=== PATIENT | female | born 1955 | race Caucasian/White ===

== ENCOUNTER → 2018-01-05 10:47 | Outpatient (CLI) | payer BC, SELFPAY ==
[2018-01-05 11:58] LABS: Absolute Lymphocyte Count 1.22 X10^3/ul (0.83-4.51); Absolute Neutrophil Count 2.6 X10^3/uL (2.0-7.7); Basophil# 0.01 X10^3/uL; Basophil% 0.2 % (0-1); Eosinophil# 0.01 X10^3/uL; Eosinophils% 0.2 % (0-5); Hematocrit 44.9 % (37-47); Hemoglobin 14.6 g/dl (12.0-15.0); Lymphocyte # 1.22 X10^3/ul (4.0); Mean Corp Hgb Conc 32.5 g/gl (32-36); Mean Corpuscular Hgb 30.9 pg (27.0-32.0); Mean Corpuscular Volume 95.1 fL (81-99); Mean Platelet Vol. 10.4 fl (6.2-12.0); Monocyte# 0.27 X10^3/uL; Monocyte% 6.6 % (0-10); Neutrophil # 2.55 X10^3/uL (2.7-7.7); Neutrophil % 62.8 % (47-70); POSITIVE COUNT NO; POSITIVE DIFFERENTIAL NO; POSITIVE MORPHOLOGY NO; Platelet Count 279 K/mm3 (150-450); RBC Distribution Width CV 13.5 % (11.6-14.6); RBC Distribution Width SD 47.1 fl (35.1-43.9); Red Blood Count 4.72 M/mm3 (4.2-5.4); White Blood Count 4.1 K/mm3 (4.4-11.0)
[2018-01-05 12:38] LABS: ALB/GLOB Ratio 0.9 RATIO (0.9-2.4); AST(SGOT) 17 U/L (15-37); Alanine Aminotransfer ALT/SGPT 21 U/L (13-56); Albumin, Serum 3.6 g/dL (3.2-5.0); Alkaline Phosphatase 64 U/L (45-117); Anion Gap 6 (5-15); BUN 11 mg/dL (7-18); BUN/Creat Ratio 13.6 RATIO (10-20); Calcium,Total 8.3 mg/dL (8.5-10.1); Chloride 104 mmol/L (98-107); Cholesterol 184 mg/dL (200); Creatinine, Serum 0.81 mg/dL (0.55-1.02); EST Glomerular Filtration Rate 76 mL/min (>60); Est Glom Filt Rate - Afr Amer 92 mL/min (>60); Ferritin 47 ng/mL (8-252); Free T3 2.7 pg/mL (2.18-3.98); Glucose 112 mg/dL (74-106); High Density Lipoprotein 58 mg/dL; Iron 75 ug/dL (50-170); Iron Binding Capacity,Total 343 ug/dL (250-450); PERCENT IRON SATURATION 21.9 % (15.0-55.0); Potassium 3.9 mmol/L (3.5-5.1); Protein, Total 7.6 g/dL (6.4-8.2); Sodium Level 139 mmol/L (136-145); T4 Free Direct 1.63 ng/dL (0.76-1.46); Thyroid Stim Hormone (TSH) 1.18 uIU/mL (0.358-3.74); Triglycerides 85 mg/dL; Very Low Density Lipoprotein 17 mg/dL (5-40)
[2018-01-07 09:50] LABS: Vitamin D,25 Hydroxy 20.7 ng/mL (29.95-100.01)
== END ==
PROVIDERS: Family Provider Family Medicine; PCP Family Medicine; Visit Provider Internal Medicine Endocrinology, Diabetes & Metabolism
DX: E03.9 Hypothyroidism, unspecified (principal); R63.5 Abnormal weight gain; E55.9 Vitamin D deficiency, unspecified; R53.82 Chronic fatigue, unspecified; R53.81 Other malaise
CPT/HCPCS: 36415; 80053; 80061; 82306; 82728; 83540; 83550; 84439; 84443; 84481; 85025

== ENCOUNTER → 2018-06-01 08:05 | Outpatient (CLI) | payer BC, SELFPAY ==
[2018-06-01 10:27] LABS: ALB/GLOB Ratio 0.8 RATIO (0.9-2.4); AST(SGOT) 21 U/L (15-37); Alanine Aminotransfer ALT/SGPT 22 U/L (13-56); Albumin, Serum 3.3 g/dL (3.2-5.0); Alkaline Phosphatase 64 U/L (45-117); Anion Gap 10 (5-15); BUN 12 mg/dL (7-18); BUN/Creat Ratio 14.9 RATIO (10-20); Calcium,Total 8.3 mg/dL (8.5-10.1); Chloride 108 mmol/L (98-107); EST Glomerular Filtration Rate 77 mL/min (>60); Est Glom Filt Rate - Afr Amer 93 mL/min (>60); Free T3 2.7 pg/mL (2.18-3.98); Glucose 106 mg/dL (74-106); Potassium 3.9 mmol/L (3.5-5.1); Protein, Total 7.3 g/dL (6.4-8.2); Sodium Level 144 mmol/L (136-145); T4 Free Direct 1.75 ng/dL (0.76-1.46)
[2018-06-01 11:00] LABS: Hemoglobin A1c 5.7 % (4.2-6.3)
== END ==
PROVIDERS: Family Provider Family Medicine; PCP Family Medicine; Visit Provider Internal Medicine Endocrinology, Diabetes & Metabolism
DX: E03.9 Hypothyroidism, unspecified (principal)
CPT/HCPCS: 36415; 80053; 83036; 84439; 84443; 84481

== ENCOUNTER → 2018-07-17 09:25 | Outpatient (CLI) | payer BC, SELFPAY ==
--- NOTE | 2018-07-17 09:28 | RAD_ITS ---
STUDY: X-RAY - RIGHT SHOULDER REASON FOR EXAM: Female, 63 years old. Fall. TECHNIQUE: 2 view(s) of the shoulder. COMPARISON: None. FINDINGS: Nondisplaced fracture seen through the junction of the humeral head and neck. No impaction. No distraction. No angulation. Mild comminution. Normal glenohumeral articulation. There is degenerative arthrosis of the acromioclavicular joint without inferior osseous spur formation. Normal acromion. The soft tissue structures are unremarkable. Normal visualized pulmonary apex. RAD/Shoulder min 2 Views IMPRESSION: Fracture of the proximal humerus. Electronically Signed: James Reyes MD at 17:35 EDT , Service support ,
--- NOTE | 2018-07-17 09:28 | RAD_ITS ---
STUDY: X-RAY - RIGHT HUMERUS REASON FOR EXAM: Female, 63 years old. Fall. TECHNIQUE: 2 view(s) of the humerus. COMPARISON: None. FINDINGS: There is nondisplaced fracture through the junction of the humeral head and neck. No angulation. No impaction. No dislocation. RAD/Humerus min 2 Views IMPRESSION: Fracture of the proximal humerus at the junction of the head and neck. Electronically Signed: James Reyes MD at 17:34 EDT , Service support ,
--- NOTE | 2018-07-17 09:28 | RAD_ITS ---
STUDY: X-RAY - RIGHT ELBOW REASON FOR EXAM: Female, 63 years old. Fall. Pain. TECHNIQUE: 4 view(s) of the elbow. COMPARISON: None. FINDINGS: Normal visualized humerus, radius and ulna. Normal radiocapitellar and ulnotrochlear articulations. The soft tissue structures are unremarkable. There is no demonstrated fracture. RAD/Elbow min 3 Views IMPRESSION: Normal x-ray examination of the elbow. Electronically Signed: James Reyes MD at 17:09 EDT , Service support ,
== END ==
PROVIDERS: Family Provider Family Medicine; PCP Family Medicine; Referring Provider Family Medicine; Visit Provider Family Medicine
DX: S42.309A Unspecified fracture of shaft of humerus, unspecified arm, initial encounter for closed fracture (principal); M25.511 Pain in right shoulder; M25.521 Pain in right elbow
CPT/HCPCS: 73030; 73060; 73080

== ENCOUNTER → 2018-07-26 08:18 | Outpatient (CLI) | payer BC, SELFPAY ==
--- NOTE | 2018-07-26 08:20 | RAD_ITS ---
STUDY: X-RAY - RIGHT SHOULDER REASON FOR EXAM: Female, 63 years old. Fracture. Follow-up. TECHNIQUE: AP and scapular Y view(s) of the shoulder. COMPARISON: 07/17/2018 FINDINGS: There is moderate degenerative arthrosis of the glenohumeral articulation. There is degenerative arthrosis of the acromioclavicular joint without inferior osseous spur formation. Normal acromion. There is demineralization of the humerus and visualized osseous structures. Again demonstrated an impacted fracture of the right humeral neck. There is soft tissue swelling of the shoulder. Normal visualized pulmonary apex. RAD/Shoulder min 2 Views IMPRESSION: 1. An impacted fracture of the right humeral neck. 2. Osteopenia. Electronically Signed: Carlos Eastman MD at 8:17 EDT Tel , Service support ,
== END ==
PROVIDERS: Family Provider Family Medicine; PCP Family Medicine; Referring Provider Physician Assistant; Visit Provider Physician Assistant
DX: M25.511 Pain in right shoulder (principal)
CPT/HCPCS: 73030

== ENCOUNTER → 2018-08-01 09:58 | Outpatient (CLI) | payer BC, SELFPAY ==
--- NOTE | 2018-08-01 10:00 | RAD_ITS ---
STUDY: X-RAY - RIGHT SHOULDER REASON FOR EXAM: Female, 63 years old. Fracture follow-up. TECHNIQUE: 2 view(s) of the shoulder. COMPARISON: 07/26/2018. FINDINGS: Limited exam, suboptimal positioning and only 2 views. Fracture line still seen across the proximal humeral shaft. No change in the impacted fracture. No dislocation. Stable degenerative changes. RAD/Shoulder min 2 Views IMPRESSION: Stable appearance of impacted nondisplaced fracture through the junction of the humeral head and shaft. No definite interval healing. Electronically Signed: James Reyes MD at 16:55 EDT , Service support ,
== END ==
PROVIDERS: Family Provider Family Medicine; PCP Family Medicine; Referring Provider Physician Assistant; Visit Provider Physician Assistant
DX: S42.201D Unspecified fracture of upper end of right humerus, subsequent encounter for fracture with routine healing (principal)
CPT/HCPCS: 73030

== ENCOUNTER → 2018-08-27 10:30 | Outpatient (CLI) | payer BC, SELFPAY ==
[2018-08-27 11:27] LABS: Free T3 2.4 pg/mL (2.18-3.98); Thyroid Stim Hormone (TSH) 0.01 uIU/mL (0.358-3.74)
== END ==
PROVIDERS: Family Provider Family Medicine; PCP Family Medicine; Referring Provider Internal Medicine Endocrinology, Diabetes & Metabolism; Visit Provider Internal Medicine Endocrinology, Diabetes & Metabolism
DX: E03.9 Hypothyroidism, unspecified (principal); Z68.43 Body mass index [BMI] 50.0-59.9, adult
CPT/HCPCS: 36415; 84443; 84481

== ENCOUNTER → 2018-08-29 11:02 | Outpatient (CLI) | payer BC, SELFPAY ==
--- NOTE | 2018-08-29 11:06 | RAD_ITS ---
HISTORY: FRACTURE COMPARISON: 08/01/2018 and 07/17/2018 FINDINGS: Right shoulder 3 views. The surgical neck right humeral fracture shows increasing periosteal fracture callus and the fracture line is less distinct. The fracture fragments are unchanged in position. Residual mild anterior angulation of the fracture apex. No dislocation. 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 RAD/Shoulder min 2 Views IMPRESSION: The known right humeral neck fracture shows partial healing and the fracture fragments remain stable in position. at 0331 Reported and signed by: Akira Gilmore MD Electronically Signed: Akira Gilmore, at 3:29 EST Tel , Service support ,
== END ==
PROVIDERS: Family Provider Family Medicine; PCP Family Medicine; Referring Provider Physician Assistant; Visit Provider Physician Assistant
DX: M25.511 Pain in right shoulder (principal)
CPT/HCPCS: 73030

== ENCOUNTER 2018-09-11 15:30 | Outpatient (RCR) | payer BC, SELFPAY ==
--- NOTE | 2018-08-08 17:59 | HP.PTEVAL_ITS ---
Patient's Visit Information LIBBY NEWBERRY is a 63 year old F referred to Physical Therapy by JOBY Loyola with a diagnosis of R proximal humerus Fx. Date of Evaluation: 08/08/18 Physical Therapist: Gabriel Walden PT, - Visit Plan Frequency: 2-3x /Week Plan: R shoulder AROM ex's, strengthening (rot cuff), scap stab ex's, UBE, and HEP - Subjective Subjective: DOI: 07/15/18. Pt reports she fell while walking on a dark path that evening. Pt reports she landed on her knees and elbows, which resulted in a R proximal humeral Fx. Pt reports she went to the ER where she was xrayed, which showed a R proximal humeral fx. Pt reports she was placed into a sling, and once she flew home, has been seen by an orthopedic Dr. Pt reports she is to stay in a sling for another week from today for safe measure. 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 No T or N at this time. Pt notes sleep diff at this time secondary to pain. Pt is L hand dom. 1/10 pain at rest, 5/10 pain at worst (moving her R UE) - Pain R UE Pain Intensity (Out of 10): 1 Pain Intensity Range: 5 - Objective Neuro: B UE sensation is WNL to light touch. B bicepital reflex= 2/3. Observation: echymosis still present. No obvious deformity. ROM: L shoulder flex= 175, abd= 180; R shoulder flex= 70, abd= 40. MMT: L UE 5/5 throughout, R UE 2-/5 and painful - Goals Goal 1:: Decrease R shoulder pain x 50% to aid with sleep Goal Time Frame: 6-8 Weeks Goal 2:: Increase R shoulder abd and flex ROM x 50 degrees to aid with overhead activity Goal Time Frame: 6-8 Weeks Goal 3:: Increase R shoulder strength x 1 grade to aid with IADL's Goal Time Frame: 6-8 Weeks Goal 4:: I with HEP Goal Time Frame: 6-8 Weeks - Rehabilitation Potential Physical Therapy Diagnosis: R shoulder pain, weakness, and limited ROM secondary to R proximal humerus Fx. Rehabilitation Potential: Good - Anticipated Interventions Patient/Client Instruction: Educate patient on: Condition, Plan of Care For the Purpose of:: To improve self management Therapeutic Exercise to Include: Strength training, Endurance training, Postural training, Active ROM, Scapular Strength/Stabilization For the Purpose of:: To decrease pain, To increase ROM, To improve muscle performance and motor function Cryotherapy (ice pack, ice massage): Yes For the Purpose of:: To decrease pain Thank you for the opportunity to evaluate your patient. For Medicare and Medicare HMO plans, please review the plan of care and approve it. It will need to be FAXED BACK to us at [phone] for Medicare purposes. Please let me know if there are questions or concerns regarding this plan of care. Physician Yasmine re: Date:
--- NOTE | 2018-09-11 15:59 | HP.PTEVAL_ITS ---
Patient's Visit Information LIBBY NEWBERRY is a 63 year old F referred to Physical Therapy by JOBY Loyola with a diagnosis of R proximal humerus Fx. Date of Evaluation: 08/08/18 Physical Therapist: Gabriel Walden PT, - Visit Plan Frequency: 2-3x /Week Plan: Discharge - Subjective Findings: DOI: 07/15/18. Pt reports she fell while walking on a dark path that evening. Pt reports she landed on her knees and elbows, which resulted in a R proximal humeral Fx. Pt reports she went to the ER where she was xrayed, which showed a R proximal humeral fx. Pt reports she was placed into a sling, and once she flew home, has been seen by an orthopedic Dr. Pt reports she is to stay in a sling for another week from today for safe measure. 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 No T or N at this time. Pt notes sleep diff at this time secondary to pain. Pt is L hand dom. 1/10 pain at rest, 5/10 pain at worst (moving her R UE) - Pain R UE Pain Intensity (Out of 10): 1 Pain Intensity Range: 5 Comment: Humerus. 1/10 at shoulder - Objective Neuro: B UE sensation is WNL to light touch. B bicepital reflex= 2/3. Observation: echymosis still present. No obvious deformity. ROM: L shoulder flex= 175, abd= 180; R shoulder flex= 70, abd= 40. MMT: L UE 5/5 throughout, R UE 2-/5 and painful - Goals Goal 1:: Decrease R shoulder pain x 50% to aid with sleep Goal Time Frame: 6-8 Weeks Goal 2:: Increase R shoulder abd and flex ROM x 50 degrees to aid with overhead activity Goal Time Frame: 6-8 Weeks Goal 3:: Increase R shoulder strength x 1 grade to aid with IADL's Goal Time Frame: 6-8 Weeks Goal 4:: I with HEP Goal Time Frame: 6-8 Weeks - Rehabilitation Potential Physical Therapy Diagnosis: R shoulder pain, weakness, and limited ROM secondary to R proximal humerus Fx. Rehabilitation Potential: Good - Anticipated Interventions Patient/Client Instruction: Educate patient on: Condition, Plan of Care For the Purpose of:: To improve self management Therapeutic Exercise to Include: Strength training, Endurance training, Postural training, Active ROM, Scapular Strength/Stabilization For the Purpose of:: To decrease pain, To increase ROM, To improve muscle performance and motor function Cryotherapy (ice pack, ice massage): Yes For the Purpose of:: To decrease pain Thank you for the opportunity to evaluate your patient. For Medicare and Medicare HMO plans, please review the plan of care and approve it. It will need to be FAXED BACK to us at [phone] for Medicare purposes. For Medicare only, by signing this I certify the plan of care. Please let me know if there are questions or concerns regarding this plan of care. Physician Signature: Date:
--- NOTE | 2018-10-30 08:37 | HP.PTDCSUM ---
HP - PT D/C Summary It has been my pleasure to treat LIBBY NEWBERRY under orders from JOBY Loyola, for the diagnosis of R proximal humerus Fx for a total of 13 visit(s). Discharge Date: Please see the following information for a summary of their discharge status. - Subjective Subjective: Pt reports she is doing her HEP and is ready for I - Pain R UE Pain Intensity (Out of 10): 1 - Overall Improvement % Improvement: 85 - Objective Objective/Function: R shoulder ROM: flex= 150, abd= 125, ER= 50 degrees. MMT: R shoulder is 4/5 throughout. pain 1/10. I with HEP. Rx goals achieved - Goals Goal 1:: Decrease R shoulder pain x 50% to aid with sleep Goal Progress: Goal Met Goal 2:: Increase R shoulder abd and flex ROM x 50 degrees to aid with overhead activity Goal Progress: Goal Met Goal 3:: Increase R shoulder strength x 1 grade to aid with IADL's Goal Progress: Goal Met Goal 4:: I with HEP Goal Progress: Goal Met - Plan Plan: Discharge - D/C Information If there are questions or concerns regarding this patient's physical therapy, please feel free to call me at [phone]. Thank you for the referral of this patient. Sincerely, Gabriel Walden, PT, ATC
== END 2018-09-11 19:00 | disposition home or self-care (01) ==
LOC: PT 15:30
PROVIDERS: Family Provider Family Medicine; PCP Family Medicine; Referring Provider Physician Assistant; Visit Provider Physician Assistant
DX: S42.201D Unspecified fracture of upper end of right humerus, subsequent encounter for fracture with routine healing (principal)
CPT/HCPCS: 97110; 97162; 97530

== ENCOUNTER → 2018-09-12 08:20 | Outpatient (CLI) | payer BC, SELFPAY ==
--- NOTE | 2018-09-12 08:25 | BD_ITS ---
STUDY: DUAL ENERGY X-RAY ABSORPTIOMETRY / DXA REASON FOR EXAM: Female, 63 years old. The patient is postmenopausal. No loss of height. TECHNIQUE: Bone Mineral Density (BMD) measurements of lumbar spine and bilateral hips were obtained. COMPARISON: None. FINDINGS: Lumbar Spine (L1-L4): g/cm2 (1.101) / T-score (-0.7) / Z-score (0.7) Findings are suggestive of normal bone density with a low fracture risk. Left Femur Total: g/cm2 (1.144) / T-score (1.1) / Z-score (2.1) Left Femoral Neck: g/cm2 (0.884) / T-score (-1.1) / Z-score (0.2) Right Femur Total: g/cm2 (1.107) / T-score (0.8) / Z-score (1.8) Right Femoral Neck: g/cm2 (0.930) / T-score (-0.8) / Z-score (0.6) BD/Dexa Bone Density Study IMPRESSION: The patient is considered osteopenic at the level of the left femoral neck as outlined below according to World Junior Organization (WHO) criteria with a low fracture risk. Reference Information: The T-score is the number of standard deviations above or below the standard which is normal for young adults at their peak bone mineral density. The World Health Organization (WHO) interprets the T-scores as follows: Above -1 Normal bone density Between -1 and -2.5 Osteopenia Equal to / or below -2.5 Osteoporosis As a practical clinical guideline, osteopenia may be graded as follows: Mild -1 through -1.5 Moderate -1.6 through -2.0 Severe -2.1 through -2.4 The Z-score is the number of standard deviations above or below age-matched controls. A Z-score of less than -1.5 would be considered abnormal. References: 1. NIH Osteoporosis and Related Bone Diseases http://www.osteo.org 2. International Society for Clinical Densitometry http://www.iscd.org 3. National Osteoporosis Foundation http://www.nof.org Electronically Signed: Toby Centeno MD at 9:10 EST Tel [phone], Service support ,
--- OUTSIDE RECORDS SUMMARY | 2018-11-07 08:05 | XMS RPT_ITS ---
:1955 Author Organization [place] Support Name Relationship Address Phone SHAHANA NEWBERRY Unavailable [address] + [place] [address] [facility] Unavailable [address] + [place] [address] SHAHANA NEWBERRY Unavailable [address] + [place] [address] [facility] Unavailable [address] + [place] [address] SHAHANA NEWBERRY Unavailable [address] + [place] [address] [facility] Unavailable [address] + [place] [address] SHAHANA NEWBERRY Unavailable [address] + [place] [address] [facility] Unavailable [address] + [place] [address] SHAHANA NEWBERRY Unavailable [address] + [place] [address] [facility] Unavailable [address] + [place] [address] SHAHANA NEWBERRY Unavailable [address] + [place] [address] [facility] Unavailable [address] + [place] [address] SHAHANA NEWBERRY Unavailable [address] + [place] [address] [facility] Unavailable [address] + [place] [address] SHAHANA NEWBERRY Unavailable [address] + [place] [address] [facility] Unavailable [address] + [place] [address] AMISHA NEWBERRYALD Unavailable [address] + [place] [address] [facility] [employer] Unavailable [address] + [place] [address] ROHITH SHAHANA Un[address] + [facility] [address] [facility] Unavailable [address] + [place] [address] ROHITH SHAHANA Un[address] + [place] [address] [facility] Unavailable [address] + [place] [address] ROHITH SHAHANA Un[address] + [place] [address] [facility] [employer] Unavailable [address] + [place] [address] AMISHA NEWBERRYALD Unavailable [address] + [place] [address] [facility] [employer] Unavailable [address] + [place] [address] AMISHA NEWBERRYALD Unavailable [address] + [place] [address] [facility] Unavailable [address] + [place] [address] Care Team Providers Name Role Phone Akira Escobar Attending Unavailable Bari Martinez Referring Unavailable Raghunathan, Jocelyn N. Attending Unavailable Raghunathan, Jocelyn N. Referring Unavailable Ranalexis, Christopher Primary Care Unavailable Raghunathan, Jocelyn N. Attending Unavailable Raghunathan, Jocelyn N. Referring Unavailable Ranney, Christopher Primary Care Unavailable Angel Martinezer Attending Unavailable Angel Martinezer Referring Unavailable Ranalexis, Christopher Primary Care Unavailable Charu Zheng Attending Unavailable Bari Martinez Referring Unavailable Akira Escobar Attending Unavailable Bari Martinez Referring Unavailable Akira Escobar Attending Unavailable Akira Escobar Referring Unavailable Juan, Christopher Primary Care Unavailable Akira Escobar Attending Unavailable Bari Martinez Referring Unavailable Akira Escobar Attending Unavailable Akira Escobar Referring Unavailable Ranney, Christopher Primary Care Unavailable Wayt, Akira Attending Unavailable Wayt, Akira Referring Unavailable Ranney, Christopher Primary Care Unavailable Carrillonatkiya, Jocelyn N. Attending Unavailable Ragcynatkiya, Jocelyn N. Referring Unavailable Ranney, Christopher Primary Care Unavailable Wayt, Akira Attending Unavailable Ranney, Christopher Referring Unavailable Wayt, Akira Attending Unavailable Wayt, Akira Referring Unavailable Ranney, Christopher Primary Care Unavailable Ranney, Christopher Attending Unavailable Ranney, Christopher Referring Unavailable Ranney, Christopher Primary Care Unavailable PROBLEMS PROBLEMS DATE TYPE CONDITION / CODE ATTENDING STATUS SOURCE 09/11/2018 Unknown S42.201D - Akira Escobar Active [place] [facility] fracture of upper Hospital end of right Repository humerus, subsequent encounter for fracture with routine healing / S42.201D(ICD-10) 08/29/2018 Unknown M25.511 - Pain in Akira Escobar Active [place] right shoulder / Community M25.511(ICD-10) Hospital Repository 08/27/2018 Unknown E03.9 - Raghunathan, Active [place] Hypothyroidism, Jocelyn N. [facility] unspecified / Hospital E03.9(ICD-10) Repository 08/27/2018 Unknown Z68.43 - Body Raghunathan, Active [place] mass index (BMI) Jocelyn N. [facility] 50-59.9, adult / Hospital Z68.43(ICD-10) Repository 07/17/2018 Unknown S42.309A - Ranney, Active [place] Unspecified [facility] fracture of shaft Hospital of humerus, Repository unspecified arm, initial encounter for closed fracture / S42.309A(ICD-10) 07/17/2018 Unknown M25.521 - Pain in Ranalexis, Active [place] right elbow [facility] M25.521(ICD-10) Hospital Repository PROCEDURES PROCEDURES No Procedure Records FoundRESULTS RESULTS ORTHOPEDIC VISIT Observed: 09/26/2018 Status: F Source: [place] REPORT 12:42 PM ON LICENSE OF [facility] REPOSITORY [facility] [address] [place] [address] OFFICE VISIT Date of Service: 09/26/18 MR#: [id number] Acct: [id number] Name: DINAH NEWBERRY Rep #: [id number] : 1955 Provider: JOBY Escobar Age/Sex: 63/F Location: [facility] Status: Signed Intake Intake Visit Reasons: RIGHT SHOULDER Is patient in pain?: No Allergies carisoprodol [From Soma] Allergy (Verified 09/26/18 08:19) Anaphylaxis morphine Allergy (Verified 09/26/18 08:19) Hives Medications Albuterol Sulfate [Proair Hfa] 8.5 gm IH DAILY PRN 11/05/16 [History Confirmed 03/21/17] Budesonide/Formoterol 160/4.5 [Symbicort 160/4.5 Mcg Inhaler (SP)] 2 puff INHALATION BID PRN 11/05/16 [History Confirmed 03/21/17] Citalopram [Celexa] 40 mg PO QHS 11/05/16 [History Confirmed 03/21/17] Levothyroxine [Synthroid] 175 mcg PO DAILY 11/05/16 [History Confirmed 03/21/17] Montelukast [Singulair] 10 mg PO QHS 11/05/16 [History Confirmed 03/21/17] Venlafaxine HCl [Venlafaxine HCl ER] 150 mg PO QHS 11/05/16 [History Confirmed 03/21/17] PFSH Social History Smoking Status: Never smoker HPI RIGHT SHOULDER: Details: DINAH NEWBERRY is a 63 year old F here today for a followup on her right humerus fracture. Patient states that she is better. She has good shoulder range of motion although her shoulder pops. She states the popping is annoying. Patient notes that she has some stiffness into her muscles but it is improving. Patient notes that she continues to have some weakness. Denies numbness, tingling or other associated symptoms. ROS Const Reports system reviewed and no additional complaints, except as docu Eyes Reports system reviewed and no additional complaints, except as docu ENT Reports system reviewed and no additional complaints, except as docu Card Reports system reviewed and no additional complaints, except as docu Resp Reports system reviewed and no additional complaints, except as docu GI Reports system reviewed and no additional complaints, except as docu Reports system reviewed and no additional complaints, except as docu Musc Reports muscle weakness, Reports stiffness Skin/Breast Reports system reviewed and no additional complaints, except as docu Neuro Yes system reviewed and no additional complaints, except as docu Psych Reports system reviewed and no additional complaints, except as docu Endo Reports system reviewed and no additional complaints, except as docu Ortho Exam Right Shoulder Skin/Wound: No ecchymosis Contralateral Normal: Yes Testing: Positive PROM-External Rotation at side 0-60 and PROM-Forward Elevation 0-180; negative Hawkin's, Neer's, Speed's, TTP Biceps, TTP AC Joint, Drop Arm, AROM-Forward Elevation 0-180 (175), AROM-External Rotation at side 0-60 (50), Apprehension Test or empty can Internal Rotation: L1 SHOULDER: Patient has no evident abnormalities on inspection. She has no generalized swelling of the shoulder and no more ecchymosis noted. She has some minor tenderness on the lateral deltoid but no tenderness anterior or posterior shoulder. Her range of motion actually is almost full at the same time she does still use her trapezius muscle up with some strength and movement. Her strength is probably 4+/5 at this time. Assessment AND Plan Problems 1. Other closed nondisplaced fracture of proximal end of right humerus with routine healing, subsequent encounter S42.294D Plan At this time patient has shown very good improvement of the right proximal humerus fracture. Her range of motion has improved dramatically and is almost back to full range. There is still some weakness on the right side with evident trapezius recruitment. She does not really have any pains on palpation of the minimal lateral deltoid pain. At this time patient is very happy with how she is doing and we are going to continue with home exercise program as she was discharged from physical therapy due to her improvement. We discussed imaging which at this time I do not feel is warranted to have an MRI of the shoulder as she appears to have an intact rotator cuff. So she is can continue to strengthen the rotator cuff muscles. We discussed making sure that she tries not to shrug the shoulders for added stability which would help work on isolating the rotator cuff. She can ice and take anti- inflammatories as needed for pain. She can notify the office if any worsening pains or problems. We will still consider an injection if she develops any pains or signs of impingement which at this time she does not have. This note was generated with [employer] software. It may contain incorrect words, spelling, and punctuation that were not noted in checking the note before signing. Coding Level of Care Code Off vis,est,level 3 Diagnoses Other closed nondisplaced fracture of proximal end of right humerus with routine healing, subsequent encounter S42.294D Fracture type: closed Fracture morphology: other fracture Fracture alignment: nondisplaced 09/26/18 1242 <Electronically signed by Akira HEMPHILL> Date Akira HEMPHILL Cosigner Signature: Date (if applicable) CC: DEXA BONE DENSITY Observed: 09/12/2018 Status: F Source: [place] STUDY 8:23 AM [facility] REPOSITORY [facility] Imaging Services [address] [place] [address] Dexa Bone Density Study MR#: [id number] Acct: [id number] Name: DINAH NEWBERRY Rep #: [id number] : 1955 F 63 From: Toby Centeno MD PCP: Bari Martinez MD Status: REG [facility] Study: Dexa Bone Density Study Date of Exam: 09/12/18 Exam# [id number] Ordering Dr: Travis Martinez MD STUDY: DUAL ENERGY X-RAY ABSORPTIOMETRY / DXA REASON FOR EXAM: Female, 63 years old. The patient is postmenopausal. No loss of height. TECHNIQUE: Bone Mineral Density (BMD) measurements of lumbar spine and bilateral hips were obtained. COMPARISON: None. FINDINGS: Lumbar Spine (L1-L4): g/cm2 (1.101) / T-score (-0.7) / Z-score (0.7) Findings are suggestive of normal bone density with a low fracture risk. Left Femur Total: g/cm2 (1.144) / T-score (1.1) / Z-score (2.1) Left Femoral Neck: g/cm2 (0.884) / T-score (-1.1) / Z- score (0.2) Right Femur Total: g/cm2 (1.107) / T-score (0.8) / Z- score (1.8) Right Femoral Neck: g/cm2 (0.930) / T-score (-0.8) / Z-score (0.6) BD/Dexa Bone Density Study IMPRESSION: The patient is considered osteopenic at the level of the left femoral neck as outlined below according to World Junior Organization (WHO) criteria with a low fracture risk. Reference Information: The T-score is the number of standard deviations above or below the standard which is normal for young adults at their peak bone mineral density. The World Health Organization (WHO) interprets the T-scores as follows: Above -1 Normal bone density Between -1 and -2.5 Osteopenia Equal to / or below -2.5 Osteoporosis As a practical clinical guideline, osteopenia may be graded as follows: Mild -1 through -1.5 Moderate -1.6 through -2.0 Severe -2.1 through -2.4 The Z-score is the number of standard deviations above or below age-matched controls. A Z-score of less than -1.5 would be considered abnormal. References: 1. NIH Osteoporosis and Related Bone Diseases http://www.osteo.org 2. International Society for Clinical Densitometry http://www.iscd.org 3. National Osteoporosis Foundation http://www.nof.org Electronically Signed: Toby Centeno MD at 9:10 EST Tel [phone], Service support , CC: Bari Martinez MD Disintegrator: Signed INITAL EVALUATION (1) Observed: 09/11/2018 Status: F Source: [place] - PT 3:59 PM [facility] REPOSITORY [facility] Physical Therapy [facility] [address] [place] [address] Fax REHABILITATION SERVICES INITIAL EVALUATION MR#: [id number] Acct: [id number] Name: DINAH NEWBERRY Rep #: [id number] : 1955 63 From: Gabriel Walden PT, ATC Referring Dr.: JOBY Escobar Status: REG RCR Insurance: [employer] INSURANCE Patient's Visit Information DINAH NEWBERRY is a 63 year old F referred to Physical Therapy by JOBY Loyola with a diagnosis of R proximal humerus Fx. Date of Evaluation: 08/08/18 Physical Therapist: Gabriel Walden PT, - Visit Plan Frequency: 2-3x /Week Plan: Discharge - Subjective Findings: DOI: 07/15/18. Pt reports she fell while walking on a dark path that evening. Pt reports she landed on her knees and elbows, which resulted in a R proximal humeral Fx. Pt reports she went to the ER where she was xrayed, which showed a R proximal humeral fx. Pt reports she was placed into a sling, and once she flew home, has been seen by an orthopedic Dr. Pt reports she is to stay in a sling for another week from today for safe measure. 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 No T or N at this time. Pt notes sleep diff at this time secondary to pain. Pt is L hand dom. 1/10 pain at rest, 5/10 pain at worst (moving her R UE) - Pain R UE Pain Intensity (Out of 10): 1 Pain Intensity Range: 5 Comment: Humerus. 1/10 at shoulder - Objective Neuro: B UE sensation is WNL to light touch. B bicepital reflex= 2/3. Observation: echymosis still present. No obvious deformity. ROM: L shoulder flex= 175, abd= 180; R shoulder flex= 70, abd= 40. MMT: L UE 5/5 throughout, R UE 2-/5 and painful - Goals Goal 1:: Decrease R shoulder pain x 50% to aid with sleep Goal Time Frame: 6-8 Weeks Goal 2:: Increase R shoulder abd and flex ROM x 50 degrees to aid with overhead activity Goal Time Frame: 6-8 Weeks Goal 3:: Increase R shoulder strength x 1 grade to aid with IADL's Goal Time Frame: 6-8 Weeks Goal 4:: I with HEP Goal Time Frame: 6-8 Weeks - Rehabilitation Potential Physical Therapy Diagnosis: R shoulder pain, weakness, and limited ROM secondary to R proximal humerus Fx. Rehabilitation Potential: Good - Anticipated Interventions Patient/Client Instruction: Educate patient on: Condition, Plan of Care For the Purpose of:: To improve self management Therapeutic Exercise to Include: Strength training, Endurance training, Postural training, Active ROM, Scapular Strength/Stabilization For the Purpose of:: To decrease pain, To increase ROM, To improve muscle performance and motor function Cryotherapy (ice pack, ice massage): Yes For the Purpose of:: To decrease pain Thank you for the opportunity to evaluate your patient. For Medicare and Medicare HMO plans, please review the plan of care and approve it. It will need to be FAXED BACK to us at [phone] for Medicare purposes. For Medicare only, by signing this I certify the plan of care. Please let me know if there are questions or concerns regarding this plan of care. Physician Signature: Date: <Electronically signed by Gabriel Walden PT, ATC> 09/11/18 1559 CC: JOBY Escobar; Bari Martinez MD [facility] Signed ORTHOPEDIC VISIT Observed: 09/02/2018 Status: F Source: [place] REPORT 12:07 PM [facility] REPOSITORY [facility] [address] [place] [address] OFFICE VISIT Date of Service: 08/29/18 MR#: [id number] Acct: [id number] Name: DINAH NEWBERRY Rep #: [id number] : 1955 Provider: JOBY Escobar Age/Sex: 63/F Location: [facility] Status: Signed Intake Intake Visit Reasons: RIGHT SHOULDER External Grinder Tool Required: No Accompanied by: None Is patient in pain?: Yes (right shoulder) Pain scale (1-10): 2 Allergies carisoprodol [From Soma] Allergy (Verified 08/01/18 10:03) Anaphylaxis morphine Allergy (Verified 08/01/18 10:03) Hives Medications Albuterol Sulfate [Proair Hfa] 8.5 gm IH DAILY PRN 11/05/16 [History Confirmed 03/21/17] Budesonide/Formoterol 160/4.5 [Symbicort 160/4.5 Mcg Inhaler (SP)] 2 puff INHALATION BID PRN 11/05/16 [History Confirmed 03/21/17] Citalopram [Celexa] 40 mg PO QHS 11/05/16 [History Confirmed 03/21/17] Levothyroxine [Synthroid] 175 mcg PO DAILY 11/05/16 [History Confirmed 03/21/17] Montelukast [Singulair] 10 mg PO QHS 11/05/16 [History Confirmed 03/21/17] Venlafaxine HCl [Venlafaxine HCl ER] 150 mg PO QHS 11/05/16 [History Confirmed 03/21/17] PFSH Social History Smoking Status: Never smoker HPI RIGHT SHOULDER: Details: DINAH NEWBERRY is a 63 year old F here today for follow up on right shoulder pain. Patient rates her pain at 2/10 today and describes it as feeling tight and sore like a BP cuff is inflated on it. She states that when she is in PT her pain radiates from her elbow to her neck. Patient says she uses ice and heat to help with the pain. Patient states that a week ago in PT she heard a pop and the pain felt different, but says that something went back into place, as it is feeling better. Patient denies numbness and tingling. Patient states she does have some slight swelling and hears occasional clicking. Ortho Exam Right Shoulder Skin/Wound: No ecchymosis Testing: Positive AROM-Forward Elevation 0-180 and AROM-External Rotation at side 0-60; negative Sulcus Sign or translation Internal Rotation: L3 SHOULDER: On inspection, patients swelling is almost completely resolved. There is a very faint contusion noted. Patient has full forward flexion and abduction that is almost full to 170 degrees. Her external rotation is normal with some decrease in internal rotation. Her strength is slightly diminished throughout at 4/5. Her ROM and strength is so much improved compared to previous visit. Assessment AND Plan Problems 1. Other closed nondisplaced fracture of proximal end of right humerus with routine healing, subsequent encounter S48.738Y Plan Obtained Xrays of patient's right shoulder. Personally reviewed Xrays with patient. Today in the office patient shows very good improvement from her last visit. The swelling in his shoulder has almost completely resolved. There is only a very faint area of bruising noted at this time. Her range of motion has increased dramatically having almost full range of motion in 3 directions. Her strength is still a little diminished which is to be expected. It does appear that she does have strength in her rotator cuff. We discussed the possibility of there being wrote a cuff involvement at the same time with how good her range of motion is it does not appear that she would be a surgical candidate at this time even with a small tear. We are going to continue with physical therapy to work on continued strengthening her shoulder. If in 2-3 weeks we see limited or no improvement or any worsening then we will go ahead with an MRI to evaluate the rotator cuff. Again we discussed that even if there was a small tear in her range of motion and strength is pretty much back to normal that surgery would not be her first option anyhow. We could consider possibly an injection of the shoulder if she has continued pain as well she has full range of motion and almost normal 5 out of 5 strength. She continue to ice the shoulder and take anti-inflammatories as needed for pain. Notify the office with any new injuries, new pains or worsening symptoms. Orders Orders: Plan Detail Follow Up 3 Weeks Coding Level of Care Code Off vis,est,level 3 Diagnoses Other closed nondisplaced fracture of proximal end of right humerus with routine healing, subsequent encounter S41.093U Fracture alignment: nondisplaced Fracture morphology: other fracture Fracture type: closed 09/02/18 1207 <Electronically signed by Akira HEMPHILL> Date Akira HEMPHILL Cosigner Signature: Date (if applicable) CC: SHOULDER MIN 2 VIEWS Observed: 08/29/2018 Status: F Source: [place] 11:06 AM ON LICENSE OF [facility] REPOSITORY [facility] Imaging Services [address] [place] [address] Shoulder min 2 Views MR#: [id number] Acct: [id number] Name: DINAH NEWBERRY Rep #: [id number] : 1955 F 63 From: Akira Gilmore MD PCP: Bari Martinez MD Status: REG CLI Study: Shoulder min 2 Views Date of Exam: 08/29/18 Exam# [id number] Ordering Dr: Akira Escobar HISTORY: FRACTURE COMPARISON: 08/01/2018 and 07/17/2018 FINDINGS: Right shoulder 3 views. The surgical neck right humeral fracture shows increasing periosteal fracture callus and the fracture line is less distinct. The fracture fragments are unchanged in position. Residual mild anterior angulation of the fracture apex. No dislocation. 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 RAD/Shoulder min 2 Views IMPRESSION: The known right humeral neck fracture shows partial healing and the fracture fragments remain stable in position. at 0331 Reported and signed by: Akira Gilmore MD Electronically Signed: Akira Gilmore, at 3:29 EST Tel , Service support , CC: JOBY Escobar; Bari Martinez MD Disintegrator: Signed FREE T3 Collected: 08/27/2018 Status: F Source: [place] 10:34 AM ON LICENSE OF [facility] REPOSITORY TYPE CODE TESTS RESULT OUT OF RANGE REFERENCE UNITS LAB L501.55199 2.18-3.98 pg/mL Normal FREE T3 2.4 Performed By: #### L501.90906, L501.9520 #### [place] [facility] [address] [place], [address] THYROID STIM HORMONE Collected: 08/27/2018 Status: F Source: [place] (TSH) 10:34 AM [facility] REPOSITORY TYPE CODE TESTS RESULT OUT OF RANGE REFERENCE UNITS LAB L501.9520 0.358-3.74 uIU/mL Low TSH 0.01 Performed By: #### L501.59847, L501.9520 #### [place] [facility] [address] [place], [address] ORTHOPEDIC VISIT Observed: 08/12/2018 Status: F Source: [place] REPORT 11:49 AM [facility] REPOSITORY [facility] [address] [place] [address] [address] [place] [address] OFFICE VISIT Date of Service: 07/18/18 MR#: [id number] Acct: [id number] Name: DINAH NEWBERRY Rep #: [id number] : 1955 Provider: Charu Zheng DO Age/Sex: 63/F Location: [facility] Status: Signed Intake Intake Visit Reasons: RIGHT ARM Is patient in pain?: Yes Allergies carisoprodol [From Soma] Allergy (Verified 08/01/18 10:03) Anaphylaxis morphine Allergy (Verified 08/01/18 10:03) Hives Medications Albuterol Sulfate [Proair Hfa] 8.5 gm IH DAILY PRN 11/05/16 [History Confirmed 03/21/17] Budesonide/Formoterol 160/4.5 [Symbicort 160/4.5 Mcg Inhaler (SP)] 2 puff INHALATION BID PRN 11/05/16 [History Confirmed 03/21/17] Citalopram [Celexa] 40 mg PO QHS 11/05/16 [History Confirmed 03/21/17] Levothyroxine [Synthroid] 175 mcg PO DAILY 11/05/16 [History Confirmed 03/21/17] Montelukast [Singulair] 10 mg PO QHS 11/05/16 [History Confirmed 03/21/17] Venlafaxine HCl [Venlafaxine HCl ER] 150 mg PO QHS 11/05/16 [History Confirmed 03/21/17] [facility] Social History Smoking Status: Never smoker HPI RIGHT ARM: Details: DINAH NEWBERRY is a 63 year old F here today for right arm fracture. Patient notes that she was walking on uneven sidewalk, going down hill and she fell on Sunday in [place]. Patient felt and heard a pop. Patient was taken to the ED immediately. Patient had xrays and then she saw her PCP when she returned home, where she had xrays again. Patient has been in a sling since her injury. Patient had bruising into her arm. She is able to move her fingers with no pain. Denies numbness, tingling or other associated symptoms. She is taking vicodin for pain. ROS Const Reports system reviewed and no additional complaints, except as docu Eyes Reports system reviewed and no additional complaints, except as docu ENT Reports system reviewed and no additional complaints, except as docu Card Reports system reviewed and no additional complaints, except as docu Resp Reports system reviewed and no additional complaints, except as docu GI Reports system reviewed and no additional complaints, except as docu Reports system reviewed and no additional complaints, except as docu Musc Reports joint pain, Reports joint swelling Skin/Breast Reports system reviewed and no additional complaints, except as docu Neuro Yes system reviewed and no additional complaints, except as docu Psych Reports system reviewed and no additional complaints, except as docu Endo Reports system reviewed and no additional complaints, except as docu Ortho Exam Right Shoulder Skin/Wound: Yes CDI, Yes ecchymosis Contralateral Normal: Yes Testing: Negative AROM-Forward Elevation 0-180 or AROM-External Rotation at side 0-60 Assessment AND Plan 1. Other closed nondisplaced fracture of proximal end of right humerus, initial encounter S42.053K Plan Personally reviewed the patient's medical history, medications, surgeries and recent exams if available. X-rays were reviewed. There is proximal humerus fracture noted. Educated on the anatomy of the shoulder and that her fracture is well aligned. Instructed to remain in the sling for two weeks and we will xray next week. We will begin therapy in 2 wks and gave script today. Follow up next week for xrays or sooner if pain, swelling, numbness or associated symptoms, or concerns develop. All questions answered. Patient in agreement of plan. Coding Level of Care Code Off vis,new,level 3 Diagnoses Other closed nondisplaced fracture of proximal end of right humerus, initial encounter S42.294A Encounter type: initial encounter Fracture alignment: nondisplaced Fracture morphology: other fracture 08/12/18 1149 <Electronically signed by Charu Zheng DO> Date Charu Zheng DO Cosigner Signature: Date (if applicable) CC: Bari Martinez MD INITAL EVALUATION (1) Observed: 08/08/2018 Status: F Source: [facility] - PT 5:59 PM [facility] REPOSITORY [facility] Physical Therapy Health[address] [place], [place] [address] Fax REHABILITATION SERVICES INITIAL EVALUATION MR#: [id number] Acct: [id number] Name: DINAH NEWBERRY Rep #: [id number] : 1955 63 From: Gabriel Walden PT, ATC Referring Dr.: JOBY Esocbar Status: REG RCR Insurance: [employer]Y INSURANCE Patient's Visit Information DINAH NEWBERRY is a 63 year old F referred to Physical Therapy by JOBY Loyola with a diagnosis of R proximal humerus Fx. Date of Evaluation: 08/08/18 Physical Therapist: Gabriel Walden PT, - Visit Plan Frequency: 2-3x /Week Plan: R shoulder AROM ex's, strengthening (rot cuff), scap stab ex's, UBE, and HEP - Subjective Subjective: DOI: 07/15/18. Pt reports she fell while walking on a dark path that evening. Pt reports she landed on her knees and elbows, which resulted in a R proximal humeral Fx. Pt reports she went to the ER where she was xrayed, which showed a R proximal humeral fx. Pt reports she was placed into a sling, and once she flew home, has been seen by an orthopedic Dr. Pt reports she is to stay in a sling for another week from today for safe measure. 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 No T or N at this time. Pt notes sleep diff at this time secondary to pain. Pt is L hand dom. 1/10 pain at rest, 5/10 pain at worst (moving her R UE) - Pain R UE Pain Intensity (Out of 10): 1 Pain Intensity Range: 5 - Objective Neuro: B UE sensation is WNL to light touch. B bicepital reflex= 2/3. Observation: echymosis still present. No obvious deformity. ROM: L shoulder flex= 175, abd= 180; R shoulder flex= 70, abd= 40. MMT: L UE 5/5 throughout, R UE 2-/5 and painful - Goals Goal 1:: Decrease R shoulder pain x 50% to aid with sleep Goal Time Frame: 6-8 Weeks Goal 2:: Increase R shoulder abd and flex ROM x 50 degrees to aid with overhead activity Goal Time Frame: 6-8 Weeks Goal 3:: Increase R shoulder strength x 1 grade to aid with IADL's Goal Time Frame: 6-8 Weeks Goal 4:: I with HEP Goal Time Frame: 6-8 Weeks - Rehabilitation Potential Physical Therapy Diagnosis: R shoulder pain, weakness, and limited ROM secondary to R proximal humerus Fx. Rehabilitation Potential: Good - Anticipated Interventions Patient/Client Instruction: Educate patient on: Condition, Plan of Care For the Purpose of:: To improve self management Therapeutic Exercise to Include: Strength training, Endurance training, Postural training, Active ROM, Scapular Strength/Stabilization For the Purpose of:: To decrease pain, To increase ROM, To improve muscle performance and motor function Cryotherapy (ice pack, ice massage): Yes For the Purpose of:: To decrease pain Thank you for the opportunity to evaluate your patient. For Medicare and Medicare HMO plans, please review the plan of care and approve it. It will need to be FAXED BACK to us at [phone] for Medicare purposes. Please let me know if there are questions or concerns regarding this plan of care. Physician Signature: Date: <Electronically signed by Gabriel Walden PT, ATC> 08/08/18 1759 CC: JOBY Escobar; Bari Martinez MD [facility] Signed For Medicare only, by signing this I certify the plan of care. Physicians Signature Date ORTHOPEDIC VISIT Observed: 08/01/2018 Status: F Source: DEANNE REPORT 1:00 PM [facility] REPOSITORY [facility] Orthopaedics AND Sports Medicine [address] [place] [address] OFFICE VISIT Date of Service: 08/01/18 MR#: [id number] Acct: [id number] Name: DINAH NEWBERRY Rep #: [id number] : 1955 Provider: JOBY Escobar Age/Sex: 63/F Location: [facility] Status: Signed Intake Intake Visit Reasons: RIGHT SHOULDER Is patient in pain?: Yes Allergies carisoprodol [From Soma] Allergy (Verified 08/01/18 10:03) Anaphylaxis morphine Allergy (Verified 08/01/18 10:03) Hives Medications Albuterol Sulfate [Proair Hfa] 8.5 gm IH DAILY PRN 11/05/16 [History Confirmed 03/21/17] Budesonide/Formoterol 160/4.5 [Symbicort 160/4.5 Mcg Inhaler (SP)] 2 puff INHALATION BID PRN 11/05/16 [History Confirmed 03/21/17] Citalopram [Celexa] 40 mg PO QHS 11/05/16 [History Confirmed 03/21/17] Levothyroxine [Synthroid] 175 mcg PO DAILY 11/05/16 [History Confirmed 03/21/17] Montelukast [Singulair] 10 mg PO QHS 11/05/16 [History Confirmed 03/21/17] Venlafaxine HCl [Venlafaxine HCl ER] 150 mg PO QHS 11/05/16 [History Confirmed 03/21/17] hydrocodone 5 mg-acetaminophen 325 mg tablet 1 tab PO Q6H 7 Days #28 tab 07/26/18 [Rx Confirmed 07/26/18] PFSH Social History Smoking Status: Never smoker HPI RIGHT SHOULDER: Details: DINAH NEWBERRY is a 63 year old F here today for a followup on her right shoulder fracture. She states that her pain is lessening and she is improving. She notes that her pain is now in her shoulder and less at the fracture site. Patient has been wearing her sling at all times. Her bruising is lessening around her arm. Patient took her last pain medication today and is trying to wean herself to aleve. Denies numbness, tingling or other associated symptoms. ROS Const Reports system reviewed and no additional complaints, except as docu Eyes Reports system reviewed and no additional complaints, except as docu ENT Reports system reviewed and no additional complaints, except as docu Card Reports system reviewed and no additional complaints, except as docu Resp Reports system reviewed and no additional complaints, except as docu GI Reports system reviewed and no additional complaints, except as docu Reports system reviewed and no additional complaints, except as docu Musc Reports joint pain, Reports limited joint movement Skin/Breast Reports system reviewed and no additional complaints, except as docu Neuro Yes system reviewed and no additional complaints, except as docu Psych Reports system reviewed and no additional complaints, except as docu Endo Reports system reviewed and no additional complaints, except as docu Ortho Exam Right Shoulder Skin/Wound: Yes ecchymosis (This is improving from previous visits.) Contralateral Normal: Yes Testing: Negative AROM-Forward Elevation 0-180 or AROM-External Rotation at side 0-60 SHOULDER: Patient still currently in a sling today. There is definitely improvement in the amount of swelling noted in the proximal humerus. The ecchymosis is also improving. She still has some minor tenderness of the proximal humerus at the same time shows improvement in pains today. She does have some tenderness on the anterior shoulder over the coracoid process/biceps. She also has some minor tenderness at the AC joint. She definitely still has decreased motion as she is been consistently wearing the sling as directed. Assessment AND Plan Problems 1. Closed fracture of proximal end of right humerus with routine healing, unspecified fracture morphology, subsequent encounter S42.201D Plan Obtained Xrays of patient's right shoulder. Personally reviewed Xrays with patient showing the fracture to be stable without change in alignment from previous images. It does appear that the humeral head is sitting a little higher in the joint is very possibly due to an underlying rotator cuff injury. We discussed this as a possibility and will likely need to be evaluated further once humeral fracture has healed. At this time we are going to give her a prescription for some physical therapy to begin next week with some gentle passive range of motion and progression from there. She needs to continue to ice take pain meds and anti-inflammatories as needed. She is going to return to work next week and is able to do so while wearing the sling. 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 I would continue to wear the sling for another few weeks while she works on range of motion to physical therapy. Patient to notify of any new concerns or complaints or changes in the shoulder in the meantime. Otherwise we will see her back in 1 month Orders Orders: Plan Detail Follow Up 1 Month Coding Level of Care Code Off vis,est,level 3 Diagnoses Closed fracture of proximal end of right humerus with routine healing, unspecified fracture morphology, subsequent encounter S42.201D Fracture type: closed Fracture morphology: unspecified fracture morphology 08/01/18 1300 <Electronically signed by Akira HEMPHILL> Date Akira HEMPHILL Cosigner Signature: Date (if applicable) CC: SHOULDER MIN 2 VIEWS Observed: 08/01/2018 Status: F Source: DEANNE 10:00 AM [facility] REPOSITORY [facility] Imaging Services [address] [place] [address] [place] [address] Shoulder min 2 Views MR#: [id number] Acct: [id number] Name: DINAH NEWBERRY Rep #: [id number] : 1955 F 63 From: James Reyes MD PCP: Bari Martinez MD Status: REG CLI Study: Shoulder min 2 Views Date of Exam: 08/01/18 Exam# [id number] Ordering Dr: Akira Escobar STUDY: X-RAY - RIGHT SHOULDER REASON FOR EXAM: Female, 63 years old. Fracture follow-up. TECHNIQUE: 2 view(s) of the shoulder. COMPARISON: 07/26/2018. FINDINGS: Limited exam, suboptimal positioning and only 2 views. Fracture line still seen across the proximal humeral shaft. No change in the impacted fracture. No dislocation. Stable degenerative changes. RAD/Shoulder min 2 Views IMPRESSION: Stable appearance of impacted nondisplaced fracture through the junction of the humeral head and shaft. No definite interval healing. Electronically Signed: James Reyes MD at 16:55 EDT , Service support , CC: JOBY Escobar; Bari Martinez MD Disintegrator: Signed ORTHOPEDIC VISIT Observed: 07/29/2018 Status: F Source: [facility] REPORT 8:14 AM [facility] Orthopaedics AND Sports Medicine [address] [place] [address] OFFICE VISIT Date of Service: 07/26/18 MR#: [id number] Acct: [id number] Name: DINAH NEWBERRY Rep #: [id number] : 1955 Provider: JOBY Escobar Age/Sex: 63/F Location: [facility] Status: Signed Intake Intake Visit Reasons: RIGHT SHOULDER Is patient in pain?: Yes Allergies carisoprodol [From Soma] Allergy (Verified 07/26/18 08:22) Anaphylaxis morphine Allergy (Verified 07/26/18 08:22) Hives Medications Albuterol Sulfate [Proair Hfa] 8.5 gm IH DAILY PRN 11/05/16 [History Confirmed 03/21/17] Budesonide/Formoterol 160/4.5 [Symbicort 160/4.5 Mcg Inhaler (SP)] 2 puff INHALATION BID PRN 11/05/16 [History Confirmed 03/21/17] Citalopram [Celexa] 40 mg PO QHS 11/05/16 [History Confirmed 03/21/17] Levothyroxine [Synthroid] 175 mcg PO DAILY 11/05/16 [History Confirmed 03/21/17] Montelukast [Singulair] 10 mg PO QHS 11/05/16 [History Confirmed 03/21/17] Venlafaxine HCl [Venlafaxine HCl ER] 150 mg PO QHS 11/05/16 [History Confirmed 03/21/17] hydrocodone 5 mg-acetaminophen 325 mg tablet 1 tab PO Q6H 7 Days #28 tab 07/26/18 [Rx Confirmed 07/26/18] PFSH Social History Smoking Status: Never smoker HPI RIGHT SHOULDER: Details: DINAH NEWBERRY is a 63 year old F here today for a followup on her right humerus fracture. She states that she continues to have right shoulder pain. Patient notes that she no longer has any vicodin and the OTC medications is not helpful. Patient has been wearing her sling at all times. She has significant bruising over her upper arm. Denies numbness, tingling or other associated symptoms. ROS Const Reports system reviewed and no additional complaints, except as docu Eyes Reports system reviewed and no additional complaints, except as docu ENT Reports system reviewed and no additional complaints, except as docu Card Reports system reviewed and no additional complaints, except as docu Resp Reports system reviewed and no additional complaints, except as docu GI Reports system reviewed and no additional complaints, except as docu Reports system reviewed and no additional complaints, except as docu Musc Reports joint pain, Reports limited joint movement Skin/Breast Reports system reviewed and no additional complaints, except as docu Neuro Yes system reviewed and no additional complaints, except as docu Psych Reports system reviewed and no additional complaints, except as docu Endo Reports system reviewed and no additional complaints, except as docu Ortho Exam Right Shoulder Testing: Negative AROM-Forward Elevation 0-180 or AROM-External Rotation at side 0-60 SHOULDER: Patient is currently wearing a sling today in office. There is still pretty significant bruising on the proximal humerus. There is no evident deformity noted. She has tenderness on the proximal humerus as well. her ROM is still extremely limited due to pain and swelling. No other specific maneuvers were performed due to her lack of motion. Assessment AND Plan Problems 1. Other closed nondisplaced fracture of proximal end of right humerus with routine healing, subsequent encounter S49.958B Plan Obtained Xrays of patient's right shoulder. Personally reviewed X-rays which show her evident impacted fracture of the proximal humerus. There has been no change in the position/alignment of the fracture. There is no dislocation, or lucency noted. See chart for further details. Patient still has evident ecchymosis and some swelling of the proximal humerus. She has moderate amt of tenderness still in the region as well. She is to continue to ice and try and stay on top of the pain for now. She is to remain in the sling and we will recheck the X-rays in one week to make sure position is the same. Orders Orders: Medications New: Plan Detail Follow Up 1 Week Coding Level of Care Code Off vis,est,level 2 Diagnoses Other closed nondisplaced fracture of proximal end of right humerus with routine healing, subsequent encounter S43.262F Fracture type: closed Fracture morphology: other fracture Fracture alignment: nondisplaced 07/29/18 0814 <Electronically signed by Akira HEMPHILL> Date Akira HEMPHILL Cosigner Signature: Date (if applicable) CC: SHOULDER MIN 2 VIEWS Observed: 07/26/2018 Status: F Source: DEANNE 8:20 AM [facility] REPOSITORY [facility] Imaging Services [address] [place] [address] Shoulder min 2 Views MR#: [id number] Acct: [id number] Name: DINAH NEWBERRY #: [id number] : 1955 F 63 From: Emeka Eastman PCP: Bari Martinez MD Status: REG CLI Study: Shoulder min 2 Views Date of Exam: 07/26/18 Exam# [id number] Ordering Dr: Akira Escobar STUDY: X-RAY - RIGHT SHOULDER REASON FOR EXAM: Female, 63 years old. Fracture. Follow-up. TECHNIQUE: AP and scapular Y view(s) of the shoulder. COMPARISON: 07/17/2018 FINDINGS: There is moderate degenerative arthrosis of the glenohumeral articulation. There is degenerative arthrosis of the acromioclavicular joint without inferior osseous spur formation. Normal acromion. There is demineralization of the humerus and visualized osseous structures. Again demonstrated an impacted fracture of the right humeral neck. There is soft tissue swelling of the shoulder. Normal visualized pulmonary apex. RAD/Shoulder min 2 Views IMPRESSION: 1. An impacted fracture of the right humeral neck. 2. Osteopenia. Electronically Signed: Carlos Eastman MD at 8:17 EDT Tel , Service support , CC: JOBY Escobar; Bari Martinez MD Disintegrator: Signed ELBOW MIN 3 VIEWS Observed: 07/17/2018 Status: F Source: DEANNE 9:29 AM [facility] REPOSITORY [facility] Imaging Services [address] [place] [address] Elbow min 3 Views MR#: [id number] Acct: [id number] Name: DINAH NEWBERRY Rep #: [id number] : 1955 F 63 From: James Reyes MD PCP: Bari Martinez MD Status: REG CLI Study: Elbow min 3 Views Date of Exam: 07/17/18 Exam# [id number] Ordering Dr: Travis Martinez MD STUDY: X-RAY - RIGHT ELBOW REASON FOR EXAM: Female, 63 years old. Fall. Pain. TECHNIQUE: 4 view(s) of the elbow. COMPARISON: None. FINDINGS: Normal visualized humerus, radius and ulna. Normal radiocapitellar and ulnotrochlear articulations. The soft tissue structures are unremarkable. There is no demonstrated fracture. RAD/Elbow min 3 Views IMPRESSION: Normal x-ray examination of the elbow. Electronically Signed: James Reyes MD at 17:09 EDT , Service support , CC: Bari Martinez MD Disintegrator: Signed HUMERUS MIN 2 VIEWS Observed: 07/17/2018 Status: F Source: [facility] 9:29 AM [facility] REPOSITORY [facility] Imaging Services [address] [place] [address] Humerus min 2 Views MR#: [id number] Acct: [id number] Name: DINAH NEWBERRY Rep #: [id number] : 1955 F 63 From: James Reyes MD PCP: Bari Martinez MD Status: REG CLI Study: Humerus min 2 Views Date of Exam: 07/17/18 Exam# [id number] Ordering Dr: Travis Martinez MD STUDY: X-RAY - RIGHT HUMERUS REASON FOR EXAM: Female, 63 years old. Fall. TECHNIQUE: 2 view(s) of the humerus. COMPARISON: None. FINDINGS: There is nondisplaced fracture through the junction of the humeral head and neck. No angulation. No impaction. No dislocation. RAD/Humerus min 2 Views IMPRESSION: Fracture of the proximal humerus at the junction of the head and neck. Electronically Signed: James Reyes MD at 17:34 EDT , Service support , CC: Bari Martinez MD Disintegrator: Signed SHOULDER MIN 2 VIEWS Observed: 07/17/2018 Status: F Source: DEANNE 9:29 AM [facility] REPOSITORY [facility] Imaging Services [address] [place] [address] Shoulder min 2 Views MR#: [id number] Acct: [id number] Name: DINAH NEWBERRY Rep #: [id number] : 1955 F 63 From: James Reyes MD PCP: Bari Martinez MD Status: REG CLI Study: Shoulder min 2 Views Date of Exam: 07/17/18 Exam# [id number] Ordering Dr: Travis Martinez MD STUDY: X-RAY - RIGHT SHOULDER REASON FOR EXAM: Female, 63 years old. Fall. TECHNIQUE: 2 view(s) of the shoulder. COMPARISON: None. FINDINGS: Nondisplaced fracture seen through the junction of the humeral head and neck. No impaction. No distraction. No angulation. Mild comminution. Normal glenohumeral articulation. There is degenerative arthrosis of the acromioclavicular joint without inferior osseous spur formation. Normal acromion. The soft tissue structures are unremarkable. Normal visualized pulmonary apex. RAD/Shoulder min 2 Views IMPRESSION: Fracture of the proximal humerus. Electronically Signed: James Reyes MD at 17:35 EDT , Service support , CC: Bari Martinez MD Disintegrator: Signed COMPREHENSIVE METABOLIC Collected: 06/01/2018 Status: F Source: DEANNE LUGO 8:09 AM [facility] REPOSITORY TYPE CODE TESTS RESULT OUT OF RANGE REFERENCE UNITS LAB L501.0100 74-106 mg/dL Normal GLU 106 Result Comment: Fasting Glucose result from 100 to 125 mg/dL suggests IMPAIRED HOMEOSTASIS per A.D.A. criteria. Please note revised GLUCOSE reference range effective 2017. LAB L501.1000 7-18 mg/dL Normal BUN 12 LAB L501.1100 0.55-1.02 mg/dL Normal CREAT,SERUM 0.80 Result Comment: The validity of the calculated GFR AND GFRAA in patients over 70 years has not been determined. Clinical correlation is essential. LAB L501.1110 >60 mL/min Normal EST GFR 77 Result Comment: Non- GFR Calc LAB L501.1115 >60 mL/min Normal EST GFR - AA 93 Result Comment: GFR Calc LAB L501.1300 10-20 RATIO Normal BUN/CRE 14.9 LAB L501.1500 6.4-8.2 g/dL T Normal PROT 7.3 LAB L501.1800 3.2-5.0 g/dL Normal ALB 3.3 LAB L501.1950 2.2-4.2 g/dL Normal GLOB 4.0 LAB L501.2000 0.9-2.4 RATIO Low A/G 0.8 LAB L501.2200 8.5-10.1 mg/dL Low CA 8.3 LAB L501.4100 15-37 U/L Normal AST 21 LAB L501.4305 45-117 U/L Normal ALK P 64 LAB L501.4405 13-56 U/L Normal ALT 22 LAB L501.4600 0.20-1.00 mg/dL T Normal BILI 0.30 LAB L501.5300 136-145 mmol/L NA Normal 144 LAB L501.5600 3.5-5.1 mmol/L K Normal 3.9 LAB L501.5900 98-107 mmol/L High CL 108 LAB L501.6100 21.0-32.0 mmol/L Normal CO2 26.0 LAB L501.6200 5-15 Normal GAP 10 Performed By: #### L500.4050, L501.00040, L501.9520, L506.0400 #### [facility] Laboratory [address] [place], [address] FREE T3 Collected: 06/01/2018 Status: F Source: DEANNE 8:09 AM [facility] REPOSITORY TYPE CODE TESTS RESULT OUT OF RANGE REFERENCE UNITS LAB L501.94825 2.18-3.98 pg/mL Normal FREE T3 2.7 Performed By: #### L500.4050, L501.30243, L501.9520, L506.0400 #### [facility] [address] [place], [address] THYROID STIM HORMONE Collected: 06/01/2018 Status: F Source: DEANNE (TSH) 8:09 AM [facility] REPOSITORY TYPE CODE TESTS RESULT OUT OF RANGE REFERENCE UNITS LAB L501.9520 0.358-3.74 uIU/mL Low TSH 0.10 Performed By: #### L500.4050, L501.24428, L501.9520, L506.0400 #### [facility] [address] [place], [address] T4 FREE DIRECT Collected: 06/01/2018 Status: F Source: [place] 8:09 AM [facility] REPOSITORY TYPE CODE TESTS RESULT OUT OF REFERENCE UNITS RANGE LAB L506.0400 0.76-1.46 ng/dL High T4 FREE 1.75 DIRECT Performed By: #### L500.4050, L501.21311, L501.9520, L506.0400 #### [facility] [address] [place], [address] HEMOGLOBIN A1C Collected: 06/01/2018 Status: F Source: DEANNE 8:09 AM [facility] REPOSITORY TYPE CODE TESTS RESULT OUT OF RANGE REFERENCE UNITS LAB L501.9985 4.2-6.3 % Normal HGB A1C 5.7 Performed By: #### L501.9985 #### [facility] [address] [place], [address] CBC W/DIFF, AUTOMATED Collected: 01/05/2018 Status: F Source: DEANNE 10:52 AM [facility] REPOSITORY TYPE CODE TESTS RESULT OUT OF RANGE REFERENCE UNITS LAB L100.1000 4.4-11.0 K/mm3 Low WBC 4.1 LAB L100.1200 4.2-5.4 M/mm3 Normal RBC 4.72 LAB L100.1300 12.0-15.0 g/dl Normal HGB 14.6 LAB L100.1400 37-47 % Normal HCT 44.9 LAB L100.1500 81-99 fL Normal MCV 95.1 LAB L100.1600 27.0-32.0 pg Normal MCH 30.9 LAB L100.1700 32-36 g/gl Normal MCHC 32.5 LAB L100.1810 11.6-14.6 % Normal RDW CV 13.5 LAB L100.1820 35.1-43.9 fl High RDW SD 47.1 LAB L100.1900 150-450 K/mm3 Normal PLT 279 LAB L100.2000 6.2-12.0 fl Normal MPV 10.4 LAB L100.2100 47-70 % Normal NEUT% 62.8 LAB L100.2200 19-41 % Normal LY% 30.0 LAB L100.2300 0-10 % Normal MONO% 6.6 LAB L100.2400 0-5 % Normal EO% 0.2 LAB L100.2500 0-1 % Normal BASO% 0.2 LAB L100.2550 0.0-0.9 % Normal IM GRAN % 0.200 Result Comment: IG% - Immature Granulocytes (promyelocytes, myelocytes and metamyelocytes) > 1% indicates that a LEFT SHIFT is Present. LAB L100.2620 2.0-7.7 X10 3/uL Normal Absolute Neut 2.6 LAB L100.2720 0.83-4.51 X10 3/ul Normal Absolute Lymph 1.22 Performed By: #### L100.0100 #### [facility] [place], [address] COMPREHENSIVE METABOLIC Collected: 01/05/2018 Status: F Source: [facility] 10:52 AM [facility] REPOSITORY TYPE CODE TESTS RESULT OUT OF RANGE REFERENCE UNITS LAB L501.0100 74-106 mg/dL High GLU 112 Result Comment: Fasting Glucose result from 100 to 125 mg/dL suggests IMPAIRED HOMEOSTASIS per A.D.A. criteria. Please note revised GLUCOSE reference range effective 2017. LAB L501.1000 7-18 mg/dL Normal BUN 11 LAB L501.1100 0.55-1.02 mg/dL Normal CREAT,SERUM 0.81 Result Comment: The validity of the calculated GFR AND GFRAA in patients over 70 years has not been determined. Clinical correlation is essential. LAB L501.1110 >60 mL/min Normal EST GFR 76 Result Comment: Non- GFR Calc LAB L501.1115 >60 mL/min Normal EST GFR - AA 92 Result Comment: GFR Calc LAB L501.1300 10-20 RATIO Normal BUN/CRE 13.6 LAB L501.1500 6.4-8.2 g/dL T Normal PROT 7.6 LAB L501.1800 3.2-5.0 g/dL Normal ALB 3.6 LAB L501.1950 2.2-4.2 g/dL Normal GLOB 4.0 LAB L501.2000 0.9-2.4 RATIO Normal A/G 0.9 LAB L501.2200 8.5-10.1 mg/dL Low CA 8.3 LAB L501.4100 15-37 U/L Normal AST 17 LAB L501.4305 45-117 U/L Normal ALK P 64 LAB L501.4405 13-56 U/L Normal ALT 21 Result Comment: Please note revised ALT reference range effective 2017. LAB L501.4600 0.20-1.00 mg/dL Normal T BILI 0.40 LAB L501.5300 136-145 mmol/L Normal NA 139 LAB L501.5600 3.5-5.1 mmol/L Normal K 3.9 LAB L501.5900 98-107 mmol/L Normal CL 104 LAB L501.6100 21.0-32.0 mmol/L Normal CO2 29.0 LAB L501.6200 5-15 Normal GAP 6 Performed By: #### L500.4050, L500.4100, L501.44255, L501.9520, L503.6030, L503.6550, L506.0400 #### [facility] [address] [place], [place], [address] LIPID PROFILE Collected: 01/05/2018 Status: F Source: [facility]AN[place] 10:52 AM [facility] REPOSITORY TYPE CODE TESTS RESULT OUT OF RANGE REFERENCE UNITS LAB L501.4900 200 mg/dL Normal CHOL 184 Result Comment: <200 mg/dL Desirable 200-240 mg/dL Borderline >240 mg/dL High Risk LAB L501.5000 mg/dL Normal TRIG 85 Result Comment: The drugs N-Acetylcysteine and Metamizole may falsely depress this assay. Serum Triglycerides Reference Interval Normal <150 mg/dL Borderline high 150 - 199 mg/dL High 200 - 499 mg/dL Very High > or = 500 mg/dL LAB L501.6400 mg/dL Normal HDL 58 Result Comment: The drugs N-Acetylcysteine and Metamizole may falsely depress this assay. Reference Range HDL <40 mg/dL Low HDL Cholesterol HDL >or= 60 mg/dL High HDL Cholesterol LAB L501.6500 0-130 mg/dL Normal LDL 109 LAB L501.6600 5-40 mg/dL Normal VLDL 17 Performed By: #### L500.4050, L500.4100, L501.72695, L501.9520, L503.6030, L503.6550, L506.0400 #### [facility] [address] [place], [address] FREE T3 Collected: 01/05/2018 Status: F Source: [place] 10:52 AM [facility] REPOSITORY TYPE CODE TESTS RESULT OUT OF RANGE REFERENCE UNITS LAB L501.14233 2.18-3.98 pg/mL Normal FREE T3 2.7 Performed By: #### L500.4050, L500.4100, L501.06325, L501.9520, L503.6030, L503.6550, L506.0400 #### [facility] [address] [place], [place], [address] THYROID STIM HORMONE Collected: 01/05/2018 Status: F Source: DEANNE (TSH) 10:52 AM [facility] REPOSITORY TYPE CODE TESTS RESULT OUT OF RANGE REFERENCE UNITS LAB L501.9520 0.358-3.74 uIU/mL Normal TSH 1.18 Performed By: #### L500.4050, L500.4100, L501.78875, L501.9520, L503.6030, L503.6550, L506.0400 #### [facility] [address] [place], [place], [address] IRON+IRON BINDING Collected: 01/05/2018 Status: F Source: [facility] 10:52 AM [facility] REPOSITORY TYPE CODE TESTS RESULT OUT OF RANGE REFERENCE UNITS LAB L503.6075 250-450 ug/dL TIBC Normal 343 LAB L503.6150 50-170 ug/dL IRON Normal 75 LAB L503.6250 15.0-55.0 % IRON Normal SATURATION 21.9 Performed By: #### L500.4050, L500.4100, L501.91992, L501.9520, L503.6030, L503.6550, L506.0400 #### [facility] [address] [place], [address] FERRITIN Collected: 01/05/2018 Status: F Source: [place] 10:52 AM [facility] REPOSITORY TYPE CODE TESTS RESULT OUT OF RANGE REFERENCE UNITS LAB L503.6550 8-252 ng/mL Normal FERRITIN 47 Performed By: #### L500.4050, L500.4100, L501.24048, L501.9520, L503.6030, L503.6550, L506.0400 #### [facility] [address] [place], [address] T4 FREE DIRECT Collected: 01/05/2018 Status: F Source: [place] 10:52 AM [facility] REPOSITORY TYPE CODE TESTS RESULT OUT OF REFERENCE UNITS RANGE LAB L506.0400 0.76-1.46 ng/dL High T4 FREE 1.63 DIRECT Performed By: #### L500.4050, L500.4100, L501.61430, L501.9520, L503.6030, L503.6550, L506.0400 #### [facility] [address] [place], [address] VITAMIN D,25 HYDROXY Collected: 01/05/2018 Status: F Source: [place] 10:52 AM [facility] REPOSITORY TYPE CODE TESTS RESULT OUT OF REFERENCE UNITS RANGE LAB L506.1000 29.95-100.01 ng/mL Low Vitamin D 20.7 25-OH Result Comment: Vitamin D 25(OH) Status Range Deficiency <20 ng/mL (50nmol/L) Insuffciency 20 - 30 ng/mL (50 - 75 nmol/L) Sufficiency 30 - 100 ng/mL (75 - 250 nmol/L) Toxicity >100 ng/mL (>250 nmol/L) Performed By: #### L506.1000 #### [facility] [address], [address] ALLERGIES ALLERGIES DATE TYPE / CODE NAME / CODE REACTION SEVERITY SOURCE 09/26/2018 Drug morphine/F0 Hives Unknown [facility] Allergy/4160 [id number](RX Hospital 75558(SNOMED NORM) Repository CT) 09/26/2018 Drug carisoprodo Anaphylaxis Unknown [facility] Allergy/4160 l/[id number] Hospital 84597(SNOMED 2(RXNORM) Repository CT) ENCOUNTERS ENCOUNTERS ADMIT/DISCHARGE ACCOUNT ADMITTING ENCOUNTER LOCATION SOURCE NUMBER CLASS 09/26/2018/ [id number] Ambulatory [facility] [place] [facility] Rep[facility] 09/12/2018 [id number] [place] [facility] ing:OPBD Repository 09/11/2018 [id number] Ambulatory [place] 0 [facility] ing:PT Repository 08/29/2018 [id number] Ambulatory [place] 9 [facility] ing:HPRAD Repository 08/29/2018/ [id number] Ambulatory BMSBuilding:B [place] 8 3 [facility] Repository 08/27/2018 [id number] Ambulatory [place] 4 [facility] ing:LAB Repository 08/01/2018 [id number] Ambulatory [place] 3 [facility] ing:HPRAD Repository 08/01/2018/ [id number] Ambulatory [facility] [place] [facility] 2 [facility] Repository 07/26/2018 [id number] Amb[place] 2 [facility] ing:HPRAD Repository 07/26/2018/ [id number] Ambulatory BMSBuilding:B [place] 8 3 [facility] Repository 07/18/2018/ [id number] Ambulatory BMSBuilding:B [place] 8 9 [facility] Repository 07/17/2018 [id number] Ambulatory [place] 9 [facility] ing:MTRAD Repository 06/01/2018 [id number] Ambulatory [place] 7 [facility] ing:LAB Repository 01/05/2018 [id number] Ambulatory [place] 3 [facility] ing:LAB Repository PAYERS PAYERS ENCOUNTER GUARANTOR PAYER SUBSCRIBER SOURCE 09/26/2018 DINAH Bradley Primary DINAH M [place] [id number] Insurance:ANTHEMPolic CLIFTONDOB: Community HICKORY y [place]: [id number] [id number] Repository [address]Che: 330) Date:6637-64-90CW [phone] () [id number] [place] [address] 87649QU: 09/26/2018 Secondary NOT GIVENUNK [place] Insurance:SELF PAY [facility] Number: Effective Repository Date:2018-09-25 09/12/2018 DINAH Bradley Primary DINAH M [place] [id number] Insurance:ANTHEMPolic CLIFTONDOB: [facility] HICKORY y Number: [id number] [id number] Repository [address]Bkb: 330) Date:1752-50-72SG [phone] () 822305NTRKWLM, [place] [address]TA: 09/12/2018 Secondary NOT GIVENUNK [place] Insurance:SELF PAY [facility] Number: Effective Repository Date:2018-08-14 09/11/2018 DINAH M Primary DINAH M [place] [id number] Insurance:ANTHEMPolic CLIFTONDOB: Community HICKORY y Number: [id number] [place] [id number] Repository [address]Yar: (330) Date:3302-18-69TH [phone] () DUSTIN BRITO 15958BE: 09/11/2018 Secondary NOT GIVENUNK [place] Insurance:SELF PAY [facility] Number: Effective Repository Date:2018-08-02 08/29/2018 DINAH M Primary DINAH M [place] [id number] Insurance:ANTHEMPolic CLIFTONDOB: Community HICKORY y Number: [id number] [place] [id number] Repository [address]Oec: (330) Date:1350-80-17RZ [phone] () 178017ORKJIWZ, [place] [address]UM: 08/29/2018 Secondary NOT GIVENUNK [place] Insurance:SELF PAY [facility] Number: Effective Repository Date:2018-08-29 08/29/2018 DINAH M Primary DINAH M [place] [id number] Insurance:ANTHEMPolic CLIFTONDOB: Community HICKORY y Number: [id number] [place] [id number] Repository [address]Mcv: (330) Date:3297-33-78ZU [phone] () [id number], [place] [address]EO: 08/29/2018 Secondary NOT GIVENUNK [place] Insurance:SELF PAY [facility] Number: Effective Repository Date:2018-08-29 08/27/2018 DINAH M Primary DINAH M [place] [id number] Insurance:ANTHEMPolic CLIFTONDOB: Community HICKORY y Number: [id number] [place] [id number] Repository [address]Jng: (330) Date:5497-64-50QP [phone] () DUSTIN BRITO [address]DX: 08/27/2018 Secondary NOT GIVENUNK [place] Insurance:SELF PAY [facility] Number: Effective Repository Date:2018-08-27 08/01/2018 DINAH Bradley Primary DINAH Bradley [place] [id number] Insurance:ANTHEMPolic CLIFTONDOB: Community HICKORY y Number: [id number] [place] [id number] Repository 110[address]Vhe: (330) Date:2767-88-71CW [phone] () [address] [place] [address]11[address]BM: 08/01/2018 Secondary NOT GIVENUNK [place] Insurance:SELF PAY [facility] Number: Effective Repository Date:2018-08-01 08/01/2018 DINAH Bradley Primary DINAH Bradley [place] [id number] Insurance:ANTHEMPolic CLIFTONDOB: Community HICKORY y Number: [id number] [place], [place] [id number] Repository 99[address]Hzl: (330) Date:1603-40-30FO [phone] () [id number] [place] [address] 33[address]AN: 08/01/2018 Secondary NOT GIVENUNK [place] Insurance:SELF PAY [facility] Number: Effective Repository Date:2018-08-01 07/26/2018 DINAH Bradley Primary DINAH Bradley [place] [id number] Insurance:ANTHEMPolic CLIFTONDOB: Community HICKORY y Number: [id number] [place], [place] [id number] Repository 8[address]Lsy: (263) Date:6495-00-80MH [phone] () [id number] [place] [address] 74[address]HB: 07/26/2018 Secondary NOT GIVENUNK [place] Insurance:SELF PAY [facility] Number: Effective Repository Date:2018-07-26 07/26/2018 DINAH Bradley Primary DINAH Bradley [place] [id number] Insurance:ANTHEMPolic CLIFTONDOB: Community HICKORY y Number: [id number] [place], [place] [id number] Repository [address]Hhh: (330) Date:9142-71-49KC [phone] () [id number], [place] [address]TX: 07/26/2018 Secondary NOT GIVENUNK [place] Insurance:SELF PAY [facility] Number: Effective Repository Date:2018-07-18 07/18/2018 Dinah M Primary Dinah M [place] [id number] Insurance:ANTHEMPolic CliftonDOB: Community HICKORY y Number: [id number] [place], [place] [id number] Repository [address]Jdl: (330) Date:2098-30-87WT [phone] () [id number], [place] [address]CH: 07/18/2018 Secondary NOT GIVENUNK [place] Insurance:SELF PAY [facility] Number: Effective Repository Date:2018-07-18 07/17/2018 Dinah M Primary Dinah M [place] [id number] Insurance:ANTHEMPolic CliftonDOB: Community HICKORY y Number: [id number] [place], [place] [id number] Repository [address]Aqi: (330) Date:2552-90-90JY [phone] () 539226TMLTOHA, [place] [address]DI: 07/17/2018 Secondary NOT GIVENUNK [place] Insurance:SELF PAY [facility] Number: Effective Repository Date:2018-07-17 06/01/2018 Dinah M Primary Dinah M [place] [id number] Insurance:ANTHEMPolic CliftonDOB: Community HICKORY y Number: [id number] [place], [place] [id number] Repository [address]Ueu: (330) Date:4531-36-25YV [phone] () 063653EHKZWSE, [place] [address]DE: 06/01/2018 Secondary NOT GIVENUNK [place] Insurance:SELF PAY [facility] Number: Effective Repository Date:2018-06-01 01/05/2018 Dinah M Primary Dinah Bradley [place] [id number] Insurance:ANTHEMPolic CliftonDOB: Community HICKORY Number: [id number] County General HospitalDAVIDgos[place], [place] [id number] Repository [address]Wvf: 330) Date:4108-59-59QR [phone] () 357607WMNGOPX, [place] [address]WR: 01/05/2018 Secondary NOT GIVENUNK [place] Insurance:SELF PAY [facility] Effective Repository Date:2018-01-05
== END ==
PROVIDERS: Family Provider Family Medicine; PCP Family Medicine; Referring Provider Family Medicine; Visit Provider Family Medicine
DX: Z78.0 Asymptomatic menopausal state (principal)
CPT/HCPCS: 77080

== ENCOUNTER → 2018-11-25 10:57 | Outpatient (CLI) | payer BC, SELFPAY ==
[2018-11-25 13:04] LABS: Hemoglobin A1c 5.6 % (4.2-6.3)
[2018-11-25 13:28] LABS: ALB/GLOB Ratio 0.8 RATIO (0.9-2.4); AST(SGOT) 16 U/L (15-37); Alanine Aminotransfer ALT/SGPT 19 U/L (13-56); Albumin, Serum 3.4 g/dL (3.2-5.0); Alkaline Phosphatase 80 U/L (45-117); Anion Gap 8 (5-15); BUN 12 mg/dL (7-18); BUN/Creat Ratio 15.6 RATIO (10-20); Calcium,Total 8.6 mg/dL (8.5-10.1); Chloride 107 mmol/L (98-107); Cholesterol 161 mg/dL (200); Creatinine, Serum 0.77 mg/dL (0.55-1.02); EST Glomerular Filtration Rate 80 mL/min (>60); Est Glom Filt Rate - Afr Amer 97 mL/min (>60); Free T3 2.8 pg/mL (2.18-3.98); Glucose 98 mg/dL (74-106); High Density Lipoprotein 45 mg/dL; Protein, Total 7.4 g/dL (6.4-8.2); Sodium Level 140 mmol/L (136-145); T4 Free Direct 1.69 ng/dL (0.76-1.46); Thyroid Stim Hormone (TSH) 0.04 uIU/mL (0.358-3.74); Triglycerides 95 mg/dL; Very Low Density Lipoprotein 19 mg/dL (5-40)
== END ==
PROVIDERS: Family Provider Family Medicine; PCP Family Medicine; Referring Provider Internal Medicine Endocrinology, Diabetes & Metabolism; Visit Provider Internal Medicine Endocrinology, Diabetes & Metabolism
DX: E03.9 Hypothyroidism, unspecified (principal); R73.03 Prediabetes
CPT/HCPCS: 36415; 80053; 80061; 83036; 84439; 84443; 84481

== ENCOUNTER → 2019-02-08 09:25 | Outpatient (CLI) | payer BC, SELFPAY ==
[2019-02-08 10:52] LABS: Thyroid Stim Hormone (TSH) 2.12 uIU/mL (0.358-3.74)
== END ==
PROVIDERS: Family Provider Family Medicine; PCP Family Medicine; Referring Provider Internal Medicine Endocrinology, Diabetes & Metabolism; Visit Provider Internal Medicine Endocrinology, Diabetes & Metabolism
DX: E03.9 Hypothyroidism, unspecified (principal)
CPT/HCPCS: 36415; 84439; 84443

== ENCOUNTER → 2020-08-05 07:25 | Outpatient (CLI) | payer BC, SELFPAY ==
[2020-08-05 10:26] LABS: Vitamin D,25 Hydroxy 17.4 ng/mL
[2020-08-05 10:35] LABS: ALB/GLOB Ratio 0.8 RATIO (0.9-2.4); AST(SGOT) 13 U/L (15-37); Alanine Aminotransfer ALT/SGPT 17 U/L (13-56); Albumin, Serum 3.1 g/dL (3.2-5.0); Alkaline Phosphatase 53 U/L (45-117); Anion Gap 5 (5-15); BUN 13 mg/dL (7-18); BUN/Creat Ratio 13.5 RATIO (10-20); Calcium,Total 8.7 mg/dL (8.5-10.1); Chloride 107 mmol/L (98-107); Cholesterol 197 mg/dL (200); Creatinine, Serum 0.96 mg/dL (0.55-1.02); EST Glomerular Filtration Rate 62 mL/min (>60); Est Glom Filt Rate - Afr Amer 75 mL/min (>60); Globulin 3.8 g/dL (2.2-4.2); Glucose 125 mg/dL (74-106); High Density Lipoprotein 56 mg/dL; Potassium 3.8 mmol/L (3.5-5.1); Protein, Total 6.9 g/dL (6.4-8.2); Sodium Level 140 mmol/L (136-145); T4 Free Direct 1.52 ng/dL (0.76-1.46); Thyroid Stim Hormone (TSH) 0.19 uIU/mL (0.358-3.74); Triglycerides 92 mg/dL; Very Low Density Lipoprotein 18 mg/dL (5-40)
== END ==
PROVIDERS: PCP Family Medicine; Referring Provider Family Medicine; Visit Provider Family Medicine
DX: Z00.00 Encounter for general adult medical examination without abnormal findings (principal); E03.9 Hypothyroidism, unspecified; E55.9 Vitamin D deficiency, unspecified
CPT/HCPCS: 36415; 80053; 80061; 82306; 84439; 84443

== ENCOUNTER → 2020-08-26 07:12 | Outpatient (CLI) | payer BC, SELFPAY ==
--- NOTE | 2020-08-26 07:15 | BI_ITS ---
MAMMOGRAPHY - BILATERAL SCREENING REASON FOR EXAM: Female, 65 years old. Routine annual screening examination. PERTINENT HISTORY: Non-contributory. Remote left stereotactic breast biopsy. TECHNIQUE: Digital bilateral breast claude (3D mammographic acquisition) in the CC and MLO projections. 2-D mediolateral oblique (MLO) and craniocaudad (CC) views of both breasts were obtained. CAD: Full Field Digital Mammography with Computer Added Detection was performed. COMPARISON: Comparison is made with prior study dated 07/21/2017. FINDINGS: Breast Composition: The breasts are almost entirely fatty. There are no dominant masses or suspicious calcifications. Stable benign-appearing bilateral axillary lymph nodes. No other significant abnormalities are identified. There has been no significant change since the prior study. BI/SCREEN MAMM (CAD) W/CLAUDE BILAT IMPRESSION: Stable bilateral screening mammogram. Yearly follow-up mammogram recommended. (A) ASSESSMENT CATEGORY: BIRADS Category 2: Benign. A letter regarding these results will be sent to the patient by the facility within 30 days. Approximately 10% of breast cancers are not detected by mammography. A normal mammogram should not delay biopsy of a clinically suspicious abnormality. [id number] Electronically Signed: Toby Centeno, at 8:30 EST , Service support ,
== END ==
PROVIDERS: PCP Family Medicine; Referring Provider Family Medicine; Visit Provider Family Medicine
DX: Z12.31 Encounter for screening mammogram for malignant neoplasm of breast (principal)
CPT/HCPCS: 77063; 77067

== ENCOUNTER → 2020-10-25 11:40 | Outpatient (CLI) | payer BC, SELFPAY | PROVIDERS: PCP Family Medicine; Referring Provider Family Medicine; Visit Provider Family Medicine | DX: U07.1 COVID-19 (principal) | CPT/HCPCS: 87635; U0005; U0003 ==

== ENCOUNTER 2020-12-28 08:00 | Outpatient (RCR) | payer MEDICARE, SELFPAY ==
[2020-12-28] MEDS: COVID-19 VACC, MRNA(PFIZER)/PF 30 MCG/0.3 ML SYRINGE IM (13:13)
[2021-01-18] MEDS: COVID-19 VACC, MRNA(PFIZER)/PF 30 MCG/0.3 ML SYRINGE IM (13:05)
== END 2021-03-22 23:59 ==
LOC: IMMUN 08:00
PROVIDERS: PCP Family Medicine; Visit Provider Family Medicine
DX: Z23 Encounter for immunization (principal)
CPT/HCPCS: 0001A; 0002A; 91300

== ENCOUNTER → 2021-02-03 16:36 | Outpatient (CLI) | payer MEDICARE, SELFPAY ==
[2021-02-03 18:34] LABS: Specific Gravity, Body Fluid 1.013
[2021-02-03 18:35] LABS: Vitamin D,25 Hydroxy 16.7 ng/mL
[2021-02-03 18:44] LABS: Anion Gap 6 (5-15); BUN 13 mg/dL (7-18); BUN/Creat Ratio 13.6 RATIO (10-20); Calcium,Total 8.6 mg/dL (8.5-10.1); Chloride 102 mmol/L (98-107); Creatinine, Serum 0.96 mg/dL (0.55-1.02); EST Glomerular Filtration Rate 62 mL/min (>60); Est Glom Filt Rate - Afr Amer 75 mL/min (>60); Glucose 80 mg/dL (74-106); Potassium 3.8 mmol/L (3.5-5.1); Sodium Level 138 mmol/L (136-145); Thyroid Stim Hormone (TSH) 4.33 uIU/mL (0.358-3.74)
== END ==
PROVIDERS: PCP Family Medicine; Visit Provider Family Medicine
DX: E55.9 Vitamin D deficiency, unspecified (principal); E03.9 Hypothyroidism, unspecified; R73.01 Impaired fasting glucose
CPT/HCPCS: 36415; 80048; 81002; 82306; 84439; 84443

== ENCOUNTER → 2021-08-11 12:55 | Outpatient (CLI) | payer MEDICARE, SELFPAY ==
[2021-08-11 15:29] LABS: Vitamin D,25 Hydroxy 25.2 ng/mL
[2021-08-11 15:37] LABS: Thyroid Stim Hormone (TSH) 1.68 uIU/mL (0.358-3.74)
== END ==
PROVIDERS: PCP Family Medicine; Referring Provider Family Medicine; Visit Provider Family Medicine
DX: E03.9 Hypothyroidism, unspecified (principal); E55.9 Vitamin D deficiency, unspecified
CPT/HCPCS: 36415; 82306; 84443